=== PATIENT | female | born 1955 | race Two or more races ===

== ENCOUNTER 2016-06-30 16:53 | Emergency (ER) | payer SELFPAY ==
[2016-06-30 17:01] VITALS: BMI 18.6
[2016-06-30 17:02] VITALS: TEMP 97.7
[2016-06-30] MEDS ORDERED: HYDROCODONE 5 MG/ACETAMIN 325 MG TAB PO ONE (17:35)
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
[2016-06-30 21:19] VITALS: BP 133/71; PULSE 63
== END 2016-06-30 21:15 | disposition home or self-care (01) ==
LOC: ED 16:53
DX: S00.83XA Contusion of other part of head, initial encounter (principal); V49.88XA Car occupant (driver) (passenger) injured in other specified transport accidents, initial encounter; Y93.9 Activity, unspecified; Y92.410 Unspecified street and highway as the place of occurrence of the external cause
CPT/HCPCS: 70450; 70486; 99284; J3490